=== PATIENT | female | born 1965 | race Caucasian/White ===

== ENCOUNTER 2022-08-30 09:09 | Observation (INO) ==
--- NOTE | 2022-08-06 10:36 | PAT Medication Instructions ---
Medication Instructions Date of Service August 06, 2022 Home Medications amlodipine 5 mg tablet (Norvasc) 5 mg PO QAM aspirin 81 mg tablet,delayed release (Adult Low Dose Aspirin) 81 mg PO QAM atorvastatin 80 mg tablet (Lipitor) 80 mg PO QAM epinephrine 0.3 mg/0.3 mL injection, auto-injector (EpiPen) 0.3 mg IM Q4H PRN Allergic Reaction esomeprazole magnesium 20 mg capsule,delayed release 20 mg PO QAM ezetimibe 10 mg tablet (Zetia) 10 mg PO QAM multivitamin 1 tab PO QAM paroxetine HCl 40 mg tablet (Paxil) 40 mg PO QAM Continue as directed epinephrine 0.3 mg/0.3 mL injection, auto-injector (EpiPen) 0.3 mg IM Q4H PRN Allergic Reaction (if needed) DO NOT take the morning of surgery multivitamin 1 tab PO QAM Take morning of surgery With a small sip of water, OTHERWISE NOTHING TO EAT OR DRINK AFTER MIDNIGHT: amlodipine 5 mg tablet (Norvasc) 5 mg PO QAM aspirin 81 mg tablet,delayed release (Adult Low Dose Aspirin) 81 mg PO QAM (continue as normal unless told otherwise by surgeon) atorvastatin 80 mg tablet (Lipitor) 80 mg PO QAM esomeprazole magnesium 20 mg capsule,delayed release 20 mg PO QAM ezetimibe 10 mg tablet (Zetia) 10 mg PO QAM paroxetine HCl 40 mg tablet (Paxil) 40 mg PO QAM Other Notes If you have any questions please call us at [phone] or [phone] or [phone] or [phone]
--- NOTE | 2022-08-07 13:49 | Anesthesiology Consultation ---
Date of Service August 07, 2022 Assessment & Plan (1) Encounter for pre-operative examination: - COVID screening: Per assessment on 08/07: No known COVID-19 positive contacts or current COVID-19 related symptoms. Travel screen negative. At surgeon discretion if preop Covid testing being done. - Outpatient joint pathway: Per OR booking comments, plan for outpatient joint program. Patient seen at [facility] 08/07. Case reviewed with Dr. Godoy. Patient is not recommended candidate to proceed as outpatient joint pathway. Patient and Nisa at surgeon's office aware. - Hx of angioneurotic edema: 2 episodes total (most recent 1+ years ago). 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 Per supervisor sleeping bag department response (08/12/22): "per Dr. Baker- Dr. Polanco believed her angioedema was secondary to ARB (Benicar).. No restrictions necessary other than that" Chart Review Chart Review: Acceptable Risk for Surgery and Patient seen in Pre Admission Testing Teaching & Discussion Pre-Anesthesia Teaching/Discussion Notes: Instructed NPO after midnight before surgery,except medications with 15 cc of water. Medication instructions provided according to the [facility] guidelines. History Surgery Operation Date: 08/30/22 07:00 Proposed Procedures p Left Anterior Total Hip Arthroplasty - Corey Mena, Height/Weight Height: 5 ft 4 in Weight: 93.6 kg Allergies Allergy/AdvReac Type Severity Reaction Status Date / Time olmesartan [From Benicar] Allergy Angioedema Verified 08/12/22 09:56 (per supervisor sleeping bag department records) Iodinated Contrast Media AdvReac Intermediate Vomiting Verified 08/07/22 13:01 Medications Home Medications Medication Instructions Recorded Confirmed Last Taken amlodipine 5 mg tablet (Norvasc) 5 mg PO QAM 03/27/22 08/07/22 Unknown aspirin 81 mg tablet,delayed 81 mg PO QAM 03/27/22 08/07/22 Unknown release (Adult Low Dose Aspirin) atorvastatin 80 mg tablet (Lipitor) 80 mg PO QAM 03/27/22 08/07/22 Unknown epinephrine 0.3 mg/0.3 mL 0.3 mg IM Q4H PRN Allergic Reaction 03/27/22 08/07/22 Unknown injection, auto-injector (EpiPen) esomeprazole magnesium 20 mg 20 mg PO QAM 03/27/22 08/07/22 Unknown capsule,delayed release ezetimibe 10 mg tablet (Zetia) 10 mg PO QAM 03/27/22 08/07/22 Unknown multivitamin 1 tab PO QAM 03/27/22 08/07/22 Unknown paroxetine HCl 40 mg tablet (Paxil) 40 mg PO QAM 03/27/22 08/07/22 Unknown Past Medical History Medical History (Updated 08/12/22 @ 11:27 by Grace Frazier) Angioneurotic edema 2 episodes total, most recent 1+ years ago [place] r/t Benicar per Patient Access Representative, pt to carry epi pen Anxiety Depression GERD (gastroesophageal reflux disease) High cholesterol History of COVID-19 Dx approximately 2019 Mild symptoms, resolved Hx of gastric ulcer Hx of migraines Hypertension Neuropathy Feet Obesity Post traumatic stress disorder Exercise / Class Metabolic Activity II 4-5 Yardwork/Stairs/Walk up hill (one FS (no CP, no SOB)) Past Family History Family History Other No family history of adverse response to anesthesia Past Surgical History Surgical History H/O arthroscopic knee surgery left History of section x2 History of colonoscopy History of esophagogastroduodenoscopy (EGD) History of hysterectomy vaginal History of open reduction and internal fixation (ORIF) procedure left fibula History of tonsillectomy Nausea and vomiting after administration of anesthetic agent S/P arthroscopy of right shoulder Status post breast reduction Past Anesthesia History No Hx of Anesthesia Complications (except PONV) and No Family Hx of Anesthesia Complications History of PONV History of PONV and Hx of Motion Sickness Social History Smoking Status: Never smoker Do You Dip or Chew Tobacco: No Hx Alcohol Use: Yes Alcohol type: hard liquor alcohol intake frequency: holidays/special occasions only Hx Substance Use: No substance use type: does not use Review of Systems Patient denies chest pain, shortness of breath, dyspnea on exertion, fever, chills, cough, wheezing, palpitations. Physical Exam Vital Signs VITALS BP 106/71 P 89 TEMP 98.3 SP02 97%RA RESP 16 PHYSICAL Full cervical extension range of motion. Full TMJ range of motion. TMD 3 finger breaths Mallampati Score 1 Dentition: missing sides Lungs: clear throughout to auscultation Cardiac: regular rate and rhythm, no murmurs noted Spine: normal Carotid arteries: negative bruit Extremities: no edema Lab Results Anesthesia Preop Results Results Anesthesia Widget: WBC 10.65 K/ul (4.8-10.8) 08/07/22 Hgb 13.1 g/dl (12.0-16.0) 08/07/22 Hct 38.8 % (34.1-44.9) 08/07/22 Plt 344 K/uL (130-400) 08/07/22 Na 139 mmol/L (136-145) 08/07/22 K 3.9 mmol/L (3.5-5.1) 08/07/22 Cl 105 mmol/L (98-107) 08/07/22 CO2 29 mmol/L (21-32) 08/07/22 BUN 17 mg/dl (6-23) 08/07/22 Creat 0.83 mg/dl (0.6-1.2) 08/07/22 Glucose Level 128 mg/dl (70-99(Fasting)) H 08/07/22 PT 11.1 Seconds (9.0-12.0) 08/07/22 PTT 26.1 Seconds (21.0-31.0) 08/07/22 INR 1.0 (0.9-1.1) 08/07/22 Blood Type AB Positive 08/07/22 Antibody Screen NEGATIVE 08/07/22 Testing Electrocardiogram Date: 08/07/22 NSR at 84bpm. Chest X-Ray Date: 08/07/22 FINDINGS: No lines and tubes are seen. The cardiomediastinal silhouette is normal. The lungs are clear. No evidence of pleural effusion or pneumothorax. IMPRESSION: No acute chest disease. Echocardiogram Date: 08/31/18 LVEF 55%. Mild MR. Normal diastolic function. Stress Test Date: 04/01/19 Type: exercise 8 METS. 86% MPHR. Rest ECG with possible prior anterior/anterior septal wall infarction pattern. Negative ECG response to stress on exercise ECG. Above av erage functional capacity. "Prognostically, this is a low risk study "per report. COVID-19 Risk Screen Screening Information COVID-19 Screen Date: 08/08/22 Exposure 21 Days Family/Household +COVID Last 21 Days: No Exposure 10 Days Any COVID Exposure Last 10 Days: No Symptoms Last 10 Days Experienced COVID Sx Last 10 Days: No + COVID 0-90 Days COVID + in Last 0-90 Days: No
[~2022-08-30 09:09] MED LIST: ACETAMINOPHEN 500 MG TAB PO SCH; BUPIVACAINE 0.5 % 5 MG/1 ML PF 10ML VIAL ONE; FAMOTIDINE 20 MG TAB PO SCH; GABAPENTIN 600 MG DOSE PO SCH; LR 60ML/HR IV SCH; ORTHO JOINT MIX INFIL SCH; TRANEXAMIC ACID 1,000 MG **IV Intra-op IV SCH; TRANEXAMIC ACID 1,000 MG **IV Pre-op IV SCH; ceFAZolin 2000MG 2,000 MG/15 ML SYR IV SCH; dexAMETHasone 4 MG TAB PO SCH
[2022-08-30] MEDS ORDERED: MIDAZOLAM HCL 1 MG/ML 2ML VIAL ONE (09:52)
[2022-08-30] MEDS ORDERED: LIDOCAINE 2% MPF LOCAL 5 ML VIAL INFIL ONE (09:52)
[2022-08-30] MEDS ORDERED: PROPOFOL IV EMULSION 10 MG/ML 20 ML VIAL IV ONE (09:52)
--- NOTE | 2022-08-30 10:37 | History & Physical Bridge Note ---
Date of Service August 30, 2022 History & Physical Bridge Note I have examined the patient, reviewed the History & Physical and in the interval since the performance of the History & Physical I have noted the following changes of clinical significance: no changes noted
[2022-08-30] MEDS ORDERED: ORTHO JOINT ANESTHETIC ONE (11:01)
[2022-08-30] MEDS ORDERED: ONDANSETRON INJ 2 MG/ML 2 ML VIAL IV PRN ×2 (11:36→15:22)
[2022-08-30] MEDS ORDERED: HYDROmorphone INJ 1 MG/ML SYRINGE IV PRN (11:36)
[2022-08-30] MEDS ORDERED: ATROPINE SULFATE 0.1 MG/ML 10ML SYR IV PRN (11:36)
[2022-08-30] MEDS ORDERED: KETOROLAC 30 MG/ML VIAL IV PRN (11:36)
[2022-08-30] MEDS ORDERED: ePHEDrine sulfate 50 MG/ML AMP IV PRN (11:36)
[2022-08-30] MEDS ORDERED: ePHEDrine sulfate 50 MG/ML AMP ONE (12:06)
[2022-08-30] MEDS ORDERED: ONDANSETRON INJ 2 MG/ML 2 ML VIAL ONE (12:26)
--- NOTE | 2022-08-30 13:19 | Operative Report ---
PG Post Operative Report Pre & Post Diagnosis Operation Date: 08/30/22 11:40 Pre-Op Diagnosis: Degenerative Joint Disease Left Hip Post-Op Diagnosis: Degenerative Joint Disease Left Hip I identified the patient and participated in the time-out.: Yes Procedure Operation Date: 08/30/22 11:40 Actual Procedures p Left Anterior Total Hip Arthroplasty(Left) - Corey Mena DO Surgeon Corey Mena DO [employer] Corey Joe PA-C Estimated Blood Loss 300 Findings Consistent with Post-Op Diagnosis Specimens Left femoral head Description of Procedure Implants used I used a ZimmerBiomet total hip arthroplasty system with a size 0 standard offset Avenir Complete stem, a 46 mm G7 cup with a 25mm screw, an E1 polyethylen e liner, a 32 mm ceramic head with a +3.5 neck. Char arrived at the hospital for the above procedure. She was seen in the preoperative holding area and the operative extremity was identified and signed. She was given a spinal anesthetic, a preoperative antibiotic, and TXA. She was then taken back to the operating room and laid on the table in the supine position. She was given basic sedation. The operative leg was secured to a Puristst leg positioner. The hip was then prepped and draped in sterile fashion. A timeout was done and the patient and the operative extremity was properly identified. An anterior approach was used. Dissection was taken down through the fascia and the tensor muscle belly was retracted laterally and the rectus was retracted medially. The circumflex vessels were identified and ligated. The capsule was then incised and tagged for later repair. The femoral neck was then cut and the femoral head was removed. The acetabulum was exposed. Time was spent doing a complete circumferential labral release. Sequential reaming of the acetabulum up to a size 45 reamer was done. Final reamings were done under fluoroscopy to ensure appropriate version. A Biomet 46 mm G7 cup was then impacted into place. A single 25 mm screw was placed. The E1 polyethylene liner was then snapped into place. Surrounding soft tissues were then injected with 100 cc of an or thopedic pain control cocktail. The proximal femur was then exposed. Sequential broaching up to a size 0 broach was done. Off that broach a size 32 head with a +3.5 neck was trialed. The hip was reduced and fluoroscopic images showed anatomic alignment of the implants in acceptable length. The broach was removed. The final size 0 standard offset Avenir Complete stem was then impacted into place. A ceramic 32 mm head with a +2.5 neck was then impacted onto the stem and the hip was reduced. Final fluoroscopic images showed anatomic alignment of the hip. The capsule was then closed with #1 Vicryl suture. A dilute betadyne lavage was then done for 3 minutes. The joint was then irrigated with normal saline solution. The fascia was closed with #1 PDS suture. Skin was closed with 2-0 Vicryl, kushal, and a Silverlon dressing. She was then transferred to a hospital bed and taken to the post anesthesia care unit in stable condition. She tolerated the procedure well. Corey Joe PA-C, was present for the entire procedure. He was critical for patient positioning, prepping, draping, retraction exposure, wound closure and application of sterile dressing. I attest to the content of the Intraoperative Record and any orders documented therein. Any exceptions are noted below.
--- NOTE | 2022-08-30 14:26 | XRay Report ---
XR hip 1V LT w pelvis HISTORY: 56 years-old Female IN PACU - Post Surgical left hip total joint arthroplasty COMPARISON: 03/27/2022 TECHNIQUE: AP view of the pelvis with crosstable lateral view of the left hip FINDINGS: Moderate osteoarthritis of the right hip. Left hip total joint arthroplasty demonstrates satisfactory alignment. No acute fracture, dislocation or unexpected opaque foreign body. Lateral skin kushal ar e present along with expected postoperative soft tissue swelling with deep tissue air. IMPRESSION: Left hip total joint arthroplasty with expected postoperative changes. ACT 112: Negative or not required by law. The above report was generated using voice recognition software. It may contain grammatical, syntax o r spelling errors. Electronically signed by: Jerome García M.D. 08/30/2022 2:25 PM
--- NOTE | 2022-08-30 14:32 | Anesthesiology Progress Note ---
Date of Service August 30, 2022 Anesthesia Post Procedure Vital Signs Vital Signs: Temp Pulse Resp BP Pulse Ox O2 Del Method O2 Flow Rate 08/30/22 14:20 97.0 F L 68 12 107/59 L 97 Room Air 08/30/22 14:10 61 12 100/67 96 Room Air 08/30/22 14:00 58 L 12 100/64 99 Oxymask 5 08/30/22 13:50 65 11 L 110/65 98 Oxymask 9 08/30/22 13:42 97.2 F L 70 12 98/62 L 98 Oxymask 9 08/30/22 09:37 98.1 F 77 20 139/77 97 Room Air Pain Intensity Left Hip: Pain Intensity: 2 Transfer of Care Handoff Completed per policy Notes Mental Status: alert / awake / arousable and participated in evaluation Patient Amnestic to Procedure: Yes Nausea / Vomiting: adequately controlled Pain: adequately controlled Airway Patency, RR, SpO2: stable & adequate BP & HR: stable & adequate Hydration State: stable & adequate Neuraxial Anesthesia: was administered and sensory block is resolving Anesthetic Complications: no major complications apparent and Pt Satisfied with anesthetic care
[2022-08-30] MEDS ORDERED: EPINEPHrine ADULT AUTO-INJECT 0.3 MG SYR IM PRN (15:22)
[2022-08-30] MEDS ORDERED: METOCLOPRAMIDE HCL INJ 5 MG/ML 2 ML VIAL IV PRN (15:22)
[2022-08-30] MEDS ORDERED: MAGNESIUM HYDROXIDE SUSP 30 ML UDC PO PRN (15:22)
[2022-08-30] MEDS ORDERED: HYDROmorphone INJ 0.5 MG/0.5 ML SYR IV PRN (15:22)
[2022-08-30] MEDS ORDERED: NALOXONE HCL 0.4 MG/1 ML VIAL/CARP IV PRN (15:22)
[2022-08-30] MEDS ORDERED: bisacodyL 10 MG SUPP PR PRN (15:22)
--- NOTE | 2022-08-30 15:56 | Fluoroscopy Report ---
FL hip LT 1V CLINICAL HISTORY: LT ANTERIOR TECHNIQUE: 1 views were obtained with the C-arm in the OR with the above procedure. Total fluoroscopy time was 23 seconds. Comparison: None available at the time of this dictation. FINDINGS/IMPRESSION: Intraoperative images were obtained of left hip total arthroplasty. Please correlate with intraoperative fluoroscopy and operative report. ACT 112: Negative or not required by law. Electronically signed by: Santhosh Dolan M.D. 08/30/2022 3:55 PM
[2022-08-30] MEDS: SODIUM CHLORIDE 0.9% 1000ML 1,000 ML IV SCH (16:45)
[2022-08-30] MEDS: KETOROLAC 30 MG/ML VIAL IV SCH ×2 (16:45→22:17)
[2022-08-30] MEDS: ACETAMINOPHEN 500 MG TAB PO SCH (18:44)
[2022-08-30] MEDS: ASPIRIN 81 MG ECTAB PO SCH (20:13)
[2022-08-30] MEDS: DOCUSATE SODIUM 100 MG CAP PO SCH (20:13)
[2022-08-30] MEDS: oxyCODONE HCL IR 5 MG TAB (IMMEDIATE RELEASE) PO PRN (20:13)
[2022-08-30] MEDS ORDERED: SENNA 8.6 MG TAB PO SCH (21:00)
[2022-08-30] MEDS: ceFAZolin 2000MG 2,000 MG/15 ML SYR IV SCH (22:17)
[2022-08-31] MEDS: oxyCODONE HCL IR 5 MG TAB (IMMEDIATE RELEASE) PO PRN (00:17)
[2022-08-31] MEDS: SODIUM CHLORIDE 0.9% 1000ML 1,000 ML IV SCH (03:05)
[2022-08-31] MEDS: KETOROLAC 30 MG/ML VIAL IV SCH ×2 (04:11→09:19)
[2022-08-31] MEDS: ceFAZolin 2000MG 2,000 MG/15 ML SYR IV SCH (04:12)
[2022-08-31] MEDS: ACETAMINOPHEN 500 MG TAB PO SCH ×2 (04:12→09:19)
[2022-08-31] MEDS: ASPIRIN 81 MG ECTAB PO SCH (07:57)
[2022-08-31] MEDS: DOCUSATE SODIUM 100 MG CAP PO SCH (07:58)
--- NOTE | 2022-08-31 07:58 | Orthopedic Progress Note ---
Date of Service August 31, 2022 Assessment & Plan (1) Status post left hip replacement: Overall she is doing very well. She is not any much pain in the left hip. She will be seen by physical therapy today for ambulation and range of motion exercises. She is on aspirin for DVT prophylaxis. She can be discharged home later today. She will follow-up with orthopedics in 2 weeks. Rhonda Pardo was seen and examined at bedside this morning. Overall she is doing very well. She is not having much pain in the left hip. She has been up and ambulating to the bathroom. She has no complaints.. Review of Systems All systems reviewed & are unremarkable except as noted in HPI & below. Physical Exam On physical examination of the left hip, the dressing is clean and dry. Her leg lengths are equal. She has active dorsiflexion and plantarflexion of her left ankle.. Results & Data Results & Data Laboratory Results . Diagnostic Findings Postoperative x-rays of the left hip show the prosthesis to be in anatomic alignment without any evidence of fracture, desiccation, or loosening.. PG Care Time/CCT Total # of Minutes Spent Total Time Spent with Patient: Total time spent is greater than 50% in coordination of care (as documented) at patient's floor/unit and/or counseling patient: Coding Level of Care Code 92590 Post Operative Follow-Up Diagnoses Status post left hip replacement Z96.642
--- NOTE | 2022-08-31 07:59 | Discharge Summary ---
Date of Service August 31, 2022 Principal Diagnosis Same as "Discharge Diagnosis" noted below under Discharge Instructions. Discharge Exam On physical examination of the left hip, the dressing is clean and dry. Her leg lengths are equal. She has active dorsiflexion and plantarflexion of her left ankle.. Discharge Data Procedures Performed Operation Date: 08/30/22 11:40 Actual Procedures p Left Anterior Total Hip Arthroplasty(Left) - Corey Mena DO Ordered Studies 08/30/22 11:40 FL hip LT 1V Routine Hospital Course (1) Status post left hip replacement: On August 30, 2022 Char arrived at [facility] and underwent a left hip replacement without complication. She had a spinal anesthetic. Postoperatively she was started on aspirin for DVT prophylaxis and transferred to the general orthopedic floors. Her hospital course was uneventful. On postop day #1, her vital signs were stable and her pain was well controlled. She was able to participate well with physical therapy doing ambulation and range of motion exercises. She was then discharged home. She will follow-up with orthopedics in 2 weeks. PG Care Time/CCT Total # of Minutes Spent Total Time Spent with Patient: Total time spent is greater than 50% in coordination of care (as documented) at patient's floor/unit and/or counseling patient: Discharge Plan Discharge Items Patient Disposition: Home - Home Health Services Reason For Visit: Degenerative Joint Disease Left Hip Discharge Diagnosis: Left hip replacement Activity: Per Instructions section Non-emergency contact: Surgeon Call non-emergency contact if: your wound has increased redness and your wound has increased drainage Follow-up/Referrals: Maddy Ariza DO [Primary Care Provider] - Diet: Regular Addtl Attending Provider Instructions: Activity and Therapy Recommendations: * If you are using [facility] then therapy will be provided at your home until they feel you have accomplished all of your goals. * If you are using [facility] then Physical Therapy will be provided until they feel you are ready to start Outpatient Physical Therapy. * If you are not using home therapy then Outpatient Physical Therapy should start about 3-5 days from your day of surgery. Therapy will last about 6-10 weeks * You were shown a series of exercises in the hospital. Do these exercises three times each day including the exercises you were shown in physical therapy. * Get up and walk several times each day.~ For the first four weeks, try not to stand or walk for more than one hour at a time. If you do stand or walk for more than one hour, you will not hurt anything, but your leg will likely swell.~~ * As you feel comfortable, you may change from the walker or crutches to a cane and~then to independent walking. Medications: * Narcotic You will likely be sent home from the hospital with a prescription for the narcotic pain medication that worked best throughout your stay. * Aspirin Most patients will be required to take Aspirin 81mg twice a day for 6 weeks after surgery. This is obtained [id number] and a prescription is not necessary. * Other medications may be prescribed for specific circumstances. If you have any questions, please call the office at . * Resume previous home medications unless otherwise instructed TEDs/Elastic Stockings: The white elastic stockings help limit swelling and prevent blood clots from forming in your legs. The more you wear them, the more they work. Wear them for six weeks. Dressing Care: Leave the Silverlon dressing in place for 7 days. After 7 days you may remove the dressing. If the incision is not draining then you may leave the kushal open to air. If there is a little bit of drainage or if the kushal are getting stuck on your clothing then cover the incision with a dry dressing. The kushal will be removed at your 2 week follow-up appointment. Showering: You may shower with the Silverlon dressing in place. Do not let the shower spray hit the dressing directly. Pat the Silverlon dressing dry. If the dressing becomes wet underneath, then simply remove the dressing. Keep the incision dry until you are 7 days out from the day of surgery. After 7 days you may remove the Silverlon dressing and shower with the kushal exposed. Let soapy water run over the kushal and pat them dry. Do not scrub or soak the incision. Things To Watch For: * Drainage from the incision site that occurs more than one week after your surgery. * Increased redness at the incision site. * Fever above 102 degrees Fahrenheit. * Unusual chest pain or shortness of breath. * Call [facility] at with any of the above problems Follow-Up Visit: Follow-up with Dr. Mena's PA (Corey Joe) 2-3 weeks after your day of surgery. He will remove your kushal and answer any questions. If you have any additional questions or concerns, Dr Mena is usually in the office at the same time and will be available An appointment was probably scheduled when you signed-up for surgery in the office. If you have any questions call Office Instructions: More detailed instructions as well as Frequently Asked Questions were provided in a folder by our office when you signed-up for surgery. Please review these instructions when you get home. If you have any further questions or concerns, please feel free to call the office at [phone] Pending Studies at Discharge: No Stand-Alone Forms: My [facility] Medications and DC Order Prescriptions: New oxycodone-acetaminophen 5-325 mg tablet 1 tab PO Q6H PRN (Reason: pain) Qty: 30 0RF Continued paroxetine HCl [Paxil] 40 mg tablet 40 mg PO QAM atorvastatin [Lipitor] 80 mg tablet 80 mg PO QAM amlodipine [Norvasc] 5 mg tablet 5 mg PO QAM ezetimibe [Zetia] 10 mg tablet 10 mg PO QAM esomeprazole magnesium 20 mg capsule,delayed release(DR/EC) 20 mg PO QAM multivitamin Tablet 1 tab PO QAM epinephrine [EpiPen] 0.3 mg/0.3 mL auto-injector 0.3 mg IM Q4H PRN (Reason: Allergic Reaction) Changed aspirin [Adult Low Dose Aspirin] 81 mg tablet,delayed release (DR/EC) 81 mg PO BID 42 Days Qty: 0 0RF Discharge Orders: Discharge Order (Routine); Ordered 08/31/22 Ordered By: Corey Mena Admission Data Admit Date/Time: 08/30/22 13:44 Attending Provider: Corey Mena Admit Provider: Corey Mena Primary Care Provider: Maddy Ariza
[2022-08-31] MEDS ORDERED: dexAMETHasone 4 MG TAB PO SCH (08:00)
[2022-08-31] MEDS ORDERED: PARoxetine HCL 20 MG TAB PO SCH (09:00)
[2022-08-31] MEDS ORDERED: MULTIVITAMIN TAB PO SCH (09:00)
[2022-08-31] MEDS ORDERED: amLODIPine BESYLATE 5 MG TAB PO SCH (09:00)
[2022-08-31] MEDS ORDERED: EZETIMIBE 10 MG TABLET PO SCH (09:00)
[2022-08-31] MEDS ORDERED: ATORVASTATIN 40 MG TAB PO SCH (09:00)
== END 2022-08-31 12:05 | disposition home health service (06) ==
LOC: ASU 09:09 → 3E 09:09